=== PATIENT | female | born 1960 | race Caucasian/White ===

== ENCOUNTER 2020-02-05 13:34 | Outpatient (REF) | payer MEDICARE, OTHER, SELFPAY ==
[2020-02-05] MEDS: iohexoL 350 MG/ML 100 ML INFUS..BTL IV (14:16)
--- NOTE | 2020-02-05 15:30 | CT_ITS ---
EXAMINATION: CT ABDOMEN AND PELVIS WITH CONTRAST CLINICAL INFORMATION: Follow-up abscess COMPARISON: Previous CT scans November 2019 TECHNIQUE: Multidetector volumetric images were obtained from the superior aspect of the liver through the pubic symphysis following administration 85 mL of Omnipaque 350 intravenous contrast. Sagittal and coronal reformatted images were obtained on the technologist's workstation. Oral contrast: Yes This CT examination was performed using dose optimization techniques as appropriate, variously including the following: *Automated exposure control *Adjustment of mA and/or kV according to patient size (this includes techniques or standardized protocols for targeted exams where dose is matched to indication/reason for exam; i.e. extremities or head) *Use of iterative reconstruction technique DLP: 487 mGy-cm FINDINGS: LUNG BASES: There is subsegmental atelectasis at the lung bases. LIVER, GALLBLADDER, AND BILIARY TREE: The liver is normal in size and shape. There is a small fluid collection is seen in the liver adjacent to the gallbladder measuring 0.5 x 1.5 cm that is stable. There is a small low-attenuation lesion in the medial segment of the left lobe of the liver axial image 35 series 3. This is not compatible with a cyst but appears unchanged. The gallbladder does not appear distended. There is wall thickening of the gallbladder is stranding of the pericholecystic fat. There is increased soft tissue seen inferior medial to the gallbladder. The previously identified abscess adjacent to the gallbladder appears decreased. There is no biliary duct dilatation. No gallstones are visible by CT scan.. PANCREAS: There is fatty infiltration of the pancreas, particularly the head of the pancreas.. SPLEEN: Unremarkable. ADRENAL GLANDS: Unremarkable. KIDNEYS AND URETERS: The kidneys are normal in size, shape, and attenuation. No hydronephrosis, hydroureter, or calculi seen. There is a 1 cm cyst in the lower pole of the left kidney. BLADDER: Unremarkable. GASTROINTESTINAL TRACT: The small and large bowel are unremarkable. The appendix is unremarkable. ABDOMINAL WALL: There is a small umbilical hernia containing fat. LYMPH NODES: Normal. VASCULAR: Unremarkable. PELVIC VISCERA: Unremarkable. OSSEOUS STRUCTURES: There are degenerative changes of the spine and joints. IMPRESSION: Interval decrease in the fluid collection/abscess adjacent to the gallbladder. There is still gallbladder wall thickening, stranding of the pericholecystic fat and some abnormal soft tissue inferior medial to the gallbladder. Small probable abscess in the liver adjacent to the gallbladder measuring 0.5 x 1.5 cm and nonspecific 7 mm low-attenuation area in the medial segment of the left lobe is unchanged. No gallstones or biliary duct dilatation seen. Fatty infiltration of the pancreas, particularly the head of the pancreas. Left renal cyst.
== END 2020-02-05 13:35 | disposition home or self-care (01) ==
LOC: HO.CT 13:34
PROVIDERS: PCP Student in an Organized Health Care Education/Training Program; Visit Provider Surgery
DX: K65.1 Peritoneal abscess (principal)
CPT/HCPCS: 74177

== ENCOUNTER → 2020-02-18 15:06 | Outpatient (BNVA) | payer MEDICARE, OTHER, SELFPAY | PROVIDERS: PCP Student in an Organized Health Care Education/Training Program; Visit Provider Surgery | DX: K65.1 Peritoneal abscess (principal) | CPT/HCPCS: 99213 ==

== ENCOUNTER 2020-03-10 11:06 | Outpatient (REF) | payer MEDICARE, OTHER, SELFPAY ==
[2020-03-10 13:59] LABS: Hematocrit 39.7 % (37-47); Hemoglobin 12.6 g/dl (12.0-16.0); Mean Corpuscular HGB Conc 31.7 g/dl (31.0-35.0); Mean Corpuscular Hemoglobin 28.1 pg (27.0-33.0); Mean Corpuscular Volume 88.4 fL (80-98); Mean Platelet Volume 10.5 fL (9.4-12.3); Platelet Count 346 X10*3/uL (160-400); Red Blood Count 4.49 X10*6/uL (4.20-5.50); Red Cell Distribution Width 15.8 % (11.0-16.0); White Blood Count 6.1 X10*3/uL (4.8-10.8)
[2020-03-10 14:35] LABS: Alanine Aminotransferase 8 U/L (0-31); Albumin Level 3.9 g/dL (3.5-5.0); Alkaline Phosphatase 145 U/L (39-117); Anion Gap 13 (12-20); Aspartate Amino Transferase 11 U/L (5-31); Bilirubin Direct < 0.2 mg/dL (0.0-0.5); Bilirubin Total 0.3 mg/dL (0.0-1.0); Blood Urea Nitrogen 13 mg/dL (9-16); Calcium 8.8 mg/dL (8.4-10.2); Carbon Dioxide 27 mmol/L (22-29); Chloride 103 mmol/L (96-108); Estimated Glomerular Filt Rate 57; Glucose Fasting 91 mg/dL (60-99); Potassium 4.1 mmol/l (3.3-5.1); Sodium 139 mmol/L (135-145); Total Protein 7.4 g/dL (6.5-8.0)
== END 2020-03-10 11:07 | disposition home or self-care (01) ==
LOC: HO.HMGCLDS 11:06
PROVIDERS: PCP Student in an Organized Health Care Education/Training Program; Visit Provider Surgery
DX: F31.9 Bipolar disorder, unspecified (principal); K65.1 Peritoneal abscess
CPT/HCPCS: 36415; 80048; 80076; 85027

== ENCOUNTER → 2020-03-17 15:23 | Outpatient (BNVA) | payer MEDICARE, OTHER, SELFPAY | PROVIDERS: PCP Student in an Organized Health Care Education/Training Program; Visit Provider Surgery | DX: R97.1 Elevated cancer antigen 125 [CA 125] (principal); K65.1 Peritoneal abscess | CPT/HCPCS: 99212 ==

== ENCOUNTER 2020-03-29 14:33 | Outpatient (REF) | payer MEDICARE, OTHER, SELFPAY ==
--- NOTE | 2020-03-29 | US_ITS ---
EXAMINATION: US PELVIS ULTRASOUND CLINICAL INFORMATION: Elevated CEA 125 COMPARISON: CT abdomen and pelvis 01/06/2020 TECHNIQUE: Ultrasound of the pelvis is performed using both transabdominal and transvaginal transducers along with Doppler. Transvaginal imaging is performed due to inadequate visualization transabdominally. FINDINGS: Uterus: The uterus is anteverted and measures 6.1 x 2.2 x 2.7 cm. The double wall endometrial thickness is normal at 3 mm. The uterus is smooth in contour and has normal myometrial echogenicity. No visible fibroid. There is fluid in region of endocervical canal versus adjacent dominant nabothian cyst measuring 0.7 x 1.3 cm. No soft tissue mass demonstrated cervix by ultrasound. Adnexa: Neither ovary is demonstrated with certainty. There is no visible adnexal mass or pelvic ascites. Recent CT shows no pelvic mass. US/US transvaginal IMPRESSION: 1. Uterus: Normal double wall endometrial thickness is 3 mm. No fibroid. Fluid in endocervical canal versus dominant nabothian cyst 0.7 x 1.3 cm. 2. Adnexa: Ovaries not visualized, although unremarkable on recent CT 02/05/2020. No visible pelvic mass or ascites.
--- NOTE | 2020-03-29 14:36 | US_ITS ---
EXAMINATION: US PELVIS ULTRASOUND CLINICAL INFORMATION: Elevated CEA 125 COMPARISON: CT abdomen and pelvis 01/06/2020 TECHNIQUE: Ultrasound of the pelvis is performed using both transabdominal and transvaginal transducers along with Doppler. Transvaginal imaging is performed due to inadequate visualization transabdominally. FINDINGS: Uterus: The uterus is anteverted and measures 6.1 x 2.2 x 2.7 cm. The double wall endometrial thickness is normal at 3 mm. The uterus is smooth in contour and has normal myometrial echogenicity. No visible fibroid. There is fluid in region of endocervical canal versus adjacent dominant nabothian cyst measuring 0.7 x 1.3 cm. No soft tissue mass demonstrated cervix by ultrasound. Adnexa: Neither ovary is demonstrated with certainty. There is no visible adnexal mass or pelvic ascites. Recent CT shows no pelvic mass. US/US pelvic complete IMPRESSION: 1. Uterus: Normal double wall endometrial thickness is 3 mm. No fibroid. Fluid in endocervical canal versus dominant nabothian cyst 0.7 x 1.3 cm. 2. Adnexa: Ovaries not visualized, although unremarkable on recent CT 02/05/2020. No visible pelvic mass or ascites.
== END 2020-03-29 14:34 | disposition home or self-care (01) ==
LOC: HO.HMGCX 14:33
PROVIDERS: PCP Student in an Organized Health Care Education/Training Program; Visit Provider Surgery
DX: R79.1 Abnormal coagulation profile (principal)
CPT/HCPCS: 76830; 76856

== ENCOUNTER → 2020-04-07 15:51 | Outpatient (BNVA) | payer MEDICARE, OTHER, SELFPAY | PROVIDERS: PCP Student in an Organized Health Care Education/Training Program; Visit Provider Surgery | DX: R97.1 Elevated cancer antigen 125 [CA 125] (principal) | CPT/HCPCS: Q3014 ==

== ENCOUNTER → 2020-07-07 15:52 | Outpatient (BNVA) | payer MEDICARE, OTHER, SELFPAY | PROVIDERS: PCP Student in an Organized Health Care Education/Training Program; Referring Provider Student in an Organized Health Care Education/Training Program; Visit Provider Surgery | DX: Z87.898 Personal history of other specified conditions (principal); R97.1 Elevated cancer antigen 125 [CA 125] | CPT/HCPCS: 99212 ==